=== PATIENT | male | born 1955 | race Caucasian/White ===

== ENCOUNTER 2017-10-12 21:58 | Inpatient (IN) | payer OTHER ==
[2017-10-13] MEDS ORDERED: NACL 0.9% 3 ML SYG IV (03:00)
[2017-10-13] MEDS ORDERED: ONDANSETRON 4 MG INJ IV (03:00)
[2017-10-13] MEDS ORDERED: NITROGLYCERIN (SL) 0.4 MG TAB SL (03:00)
[2017-10-13] MEDS ORDERED: morphine 2 MG INJ IV (03:00)
[2017-10-13] MEDS ORDERED: ALBUTEROL/IPRATROPIUM (NEB) 3 ML AMP HHN (03:00)
[2017-10-13] MEDS ORDERED: ACETAMINOPHEN 325 MG TAB PO (03:00)
[2017-10-13] MEDS ORDERED: HYDROCODONE/APAP (5/325) TAB PO (03:00)
[2017-10-13] MEDS ORDERED: MAGNESIUM HYDROXIDE 30ML CUP PO (03:00)
[2017-10-13 04:14] LABS: ADD MAN DIFF? NO
[2017-10-13 04:18] LABS: WHITE BLOOD COUNT 5.6 10^3/ul (4.8-10.8)
[2017-10-13 04:18] LABS: BASOPHIL # 0.1 10^3/ul (0.0-0.1); BASOPHILS % 0.9 % (0.0-2.0); EOSINOPHILS # 0.1 10^3/ul (0.0-0.5); EOSINOPHILS % 2.2 % (0.0-7.0); HEMATOCRIT 34.3 % (42.0-52.0); HEMOGLOBIN 11.2 g/dl (14.0-18.0); LYMPHOCYTES # 0.7 10^3/ul (0.8-2.9); LYMPHOCYTES % 13.1 % (15.0-51.0); MEAN CORPUSCULAR HEMOGLOBIN 29.9 pg (29.0-33.0); MEAN CORPUSCULAR HGB CONC 32.7 g/dl (32.0-37.0); MEAN CORPUSCULAR VOLUME 91.7 fl (82.0-101.0); MEAN PLATELET VOLUME 10.4 fl (7.4-10.4); MONOCYTE # 0.5 10^3/ul (0.3-0.9); MONOCYTES % 8.4 % (0.0-11.0); NEUTROPHIL # 4.2 10^3/ul (1.6-7.5); NEUTROPHILS % 75.2 % (39.0-77.0); PLATELET COUNT 158 10^3/UL (140-415); RED BLOOD COUNT 3.74 10^6/ul (4.70-6.10); RED CELL DISTRIBUTION WIDTH 14.1 % (11.5-14.5)
[2017-10-13 04:48] LABS: CREATINE KINASE 72 IU/L (23-200)
[2017-10-13 04:51] LABS: ALANINE AMINOTRANSFERASE 17 IU/L (13-69); ALBUMIN 3.1 g/dl (3.3-4.9); ALBUMIN/GLOBULIN RATIO 0.75; ALKALINE PHOSPHATASE 84 IU/L (42-121); ANION GAP 14 (8-16); ASPARTATE AMINO TRANSFERASE 31 IU/L (15-46); BILIRUBIN,INDIRECT 0.6 mg/dl (0-1.1); BILIRUBIN,TOTAL 0.6 mg/dl (0.2-1.3); BLOOD UREA NITROGEN 17 mg/dl (7-20); CALCIUM 8.7 mg/dl (8.4-10.2); CARBON DIOXIDE 25 mmol/L (21-31); CHLORIDE 109 mmol/L (97-110); CHOLESTEROL 96 mg/dl (100-200); CREATININE 0.77 mg/dl (0.61-1.24); HDL CHOLESTEROL 32 mg/dl (30-78); LDL CHOLESTEROL,CALCULATED 52 mg/dl; POTASSIUM 4.1 mmol/L (3.5-5.1); SODIUM 144 mmol/L (135-144); TOTAL PROTEIN 7.2 g/dl (6.1-8.1); TRIGLYCERIDES 58 mg/dl (0-149)
[2017-10-13 04:56] LABS: GLUCOSE 42 mg/dl (70-220)
[2017-10-13 05:02] LABS: TROPONIN-I 0.041 ng/ml (0.00-0.12)
[2017-10-13 05:04] LABS: CK-MB 2.19 ng/ml (0.0-2.4)
[2017-10-13] MEDS ORDERED: DEXTROSE 50% 50 ML SYRINGE (05:05)
[2017-10-13 05:21] LABS: THYROID STIMULATING HORMONE 0.774 MIU/L (0.465-4.680)
[2017-10-13] MEDS: DEXTROSE 50% 50 ML SYRINGE IV ×2 (05:26→16:47)
[2017-10-13] MEDS ORDERED: NATEGLINIDE 120 MG TAB PO (07:00)
[2017-10-13] MEDS ORDERED: LINAGLIPTIN 5 MG TABLET PO (09:00)
[2017-10-13] MEDS ORDERED: [UNRECOGNIZED DRUG - OTHER] PO (09:00)
[2017-10-13 10:00] LABS: CREATINE KINASE 86 IU/L (23-200)
[2017-10-13] MEDS: MELOXICAM 7.5 MG TAB PO (10:01)
[2017-10-13] MEDS: GABAPENTIN 300 MG CAP PO ×3 (10:01→21:54)
[2017-10-13] MEDS: DOCUSATE SODIUM 100 MG CAP PO ×2 (10:01→21:54)
[2017-10-13 10:02] LABS: CHOLESTEROL 104 mg/dl (100-200); HEMOGLOBIN A1C 6.5 % (0-5.9)
[2017-10-13 10:02] LABS: CHOL/HDL RATIO 3.4 RATIO; HDL CHOLESTEROL 30 mg/dl (30-78); LDL CHOLESTEROL,CALCULATED 62 mg/dl; TRIGLYCERIDES 60 mg/dl (0-149)
[2017-10-13] MEDS: ENOXAPARIN 40 MG/0.4 ML SYG SC (10:03)
[2017-10-13] MEDS: LISINOPRIL 10 MG TAB PO (10:03)
[2017-10-13] MEDS: BACLOFEN 10 MG TAB PO ×4 (10:03→22:01)
[2017-10-13 10:15] LABS: CK INDEX 2.8
[2017-10-13 10:17] LABS: CK-MB 2.45 ng/ml (0.0-2.4)
[2017-10-13 15:16] LABS: CREATINE KINASE 70 IU/L (23-200)
[2017-10-13 15:26] LABS: CK INDEX 3.3; TROPONIN-I 0.047 ng/ml (0.00-0.12)
[2017-10-13 15:27] LABS: CK-MB 2.32 ng/ml (0.0-2.4)
[2017-10-13] MEDS ORDERED: GLUCOSE GEL 24 GRAMS PO (16:30)
[2017-10-13] MEDS: FUROSEMIDE 40 MG INJ IV (16:45)
[2017-10-13] MEDS ORDERED: GLUCOSE GEL 15 GRAM TUBE PO ×3 (17:00→18:30)
[2017-10-13] MEDS ORDERED: GLUCOSE GEL 15 GRAM TUBE BUCCAL (18:30)
[2017-10-13] MEDS ORDERED: DEXTROSE 50% 50 ML SYRINGE IV ×2 (18:30)
[2017-10-13] MEDS ORDERED: GLUCAGON 1 MG INJ IM (18:30)
[2017-10-13 18:34] LABS: GLUCOSE 114 mg/dl (70-220)
[2017-10-13] MEDS: SENNA TAB PO (21:54)
[2017-10-13] MEDS: INSULIN ASPART [NOVOLOG] 3 ML PEN SC (22:00)
[2017-10-14] MEDS: FUROSEMIDE 40 MG INJ IV ×2 (05:40→18:20)
[2017-10-14 07:55] LABS: ADD MAN DIFF? NO
[2017-10-14] MEDS: INSULIN ASPART [NOVOLOG] 3 ML PEN SC ×4 (08:00→20:57)
[2017-10-14 08:05] LABS: WHITE BLOOD COUNT 7.4 10^3/ul (4.8-10.8)
[2017-10-14 08:05] LABS: BASOPHIL # 0.1 10^3/ul (0.0-0.1); BASOPHILS % 1.1 % (0.0-2.0); EOSINOPHILS # 0.2 10^3/ul (0.0-0.5); EOSINOPHILS % 3.2 % (0.0-7.0); HEMATOCRIT 37.4 % (42.0-52.0); LYMPHOCYTES # 0.8 10^3/ul (0.8-2.9); LYMPHOCYTES % 10.5 % (15.0-51.0); MEAN CORPUSCULAR HEMOGLOBIN 29.5 pg (29.0-33.0); MEAN CORPUSCULAR HGB CONC 32.1 g/dl (32.0-37.0); MEAN CORPUSCULAR VOLUME 91.9 fl (82.0-101.0); MEAN PLATELET VOLUME 10.5 fl (7.4-10.4); MONOCYTE # 0.5 10^3/ul (0.3-0.9); NEUTROPHIL # 5.8 10^3/ul (1.6-7.5); NEUTROPHILS % 77.9 % (39.0-77.0); PLATELET COUNT 183 10^3/UL (140-415); RED BLOOD COUNT 4.07 10^6/ul (4.70-6.10); RED CELL DISTRIBUTION WIDTH 14.1 % (11.5-14.5)
[2017-10-14 08:24] LABS: ANION GAP 14 (8-16); BLOOD UREA NITROGEN 23 mg/dl (7-20); CALCIUM 8.8 mg/dl (8.4-10.2); CARBON DIOXIDE 30 mmol/L (21-31); CHLORIDE 105 mmol/L (97-110); CREATININE 0.95 mg/dl (0.61-1.24); GLUCOSE 133 mg/dl (70-220); MAGNESIUM 1.7 mg/dl (1.7-2.5); PHOSPHORUS 3.7 mg/dl (2.5-4.9); POTASSIUM 4.1 mmol/L (3.5-5.1); SODIUM 145 mmol/L (135-144)
[2017-10-14] MEDS: INFLUENZA VIRUS VACCINE 0.5 ML (DISPENSING) IM* (08:25)
[2017-10-14] MEDS: MELOXICAM 7.5 MG TAB PO (09:53)
[2017-10-14] MEDS: DOCUSATE SODIUM 100 MG CAP PO ×2 (09:53→20:48)
[2017-10-14] MEDS: BACLOFEN 10 MG TAB PO ×4 (09:53→20:47)
[2017-10-14] MEDS: LISINOPRIL 10 MG TAB PO (09:53)
[2017-10-14] MEDS: GABAPENTIN 300 MG CAP PO ×3 (09:53→20:48)
[2017-10-14] MEDS: ENOXAPARIN 40 MG/0.4 ML SYG SC (09:57)
[2017-10-14] MEDS: MAGNESIUM SULFATE 2 GM/50 ML 50 ML IVPB (12:15)
[2017-10-14] MEDS: metFORMIN 500 MG TAB PO ×2 (13:06→18:19)
[2017-10-14] MEDS: SENNA TAB PO (20:47)
[2017-10-15] MEDS: FUROSEMIDE 40 MG INJ IV (06:04)
[2017-10-15] MEDS: INSULIN ASPART [NOVOLOG] 3 ML PEN SC ×5 (08:00→21:00)
[2017-10-15] MEDS: metFORMIN 500 MG TAB PO ×3 (08:00→17:32)
[2017-10-15 08:50] LABS: ANION GAP 14 (8-16); BLOOD UREA NITROGEN 26 mg/dl (7-20); CALCIUM 8.7 mg/dl (8.4-10.2); CARBON DIOXIDE 35 mmol/L (21-31); CHLORIDE 102 mmol/L (97-110); CREATININE 0.95 mg/dl (0.61-1.24); GLUCOSE 125 mg/dl (70-220); POTASSIUM 3.7 mmol/L (3.5-5.1); SODIUM 147 mmol/L (135-144)
[2017-10-15] MEDS: REGADENOSON 0.4 MG/5 ML SYG (09:30)
[2017-10-15] MEDS: ENOXAPARIN 40 MG/0.4 ML SYG SC (10:32)
[2017-10-15] MEDS: BACLOFEN 10 MG TAB PO ×4 (10:48→21:16)
[2017-10-15] MEDS: MELOXICAM 7.5 MG TAB PO (10:50)
[2017-10-15] MEDS: GABAPENTIN 300 MG CAP PO ×3 (10:51→21:16)
[2017-10-15] MEDS: DOCUSATE SODIUM 100 MG CAP PO ×2 (10:51→21:16)
[2017-10-15] MEDS: LISINOPRIL 10 MG TAB PO (10:56)
[2017-10-15] MEDS: SENNA TAB PO (21:16)
[2017-10-16] MEDS: FUROSEMIDE 40 MG TAB PO (06:16)
[2017-10-16 06:56] LABS: ANION GAP 13 (8-16); BLOOD UREA NITROGEN 28 mg/dl (7-20); CALCIUM 8.6 mg/dl (8.4-10.2); CARBON DIOXIDE 31 mmol/L (21-31); CHLORIDE 106 mmol/L (97-110); CREATININE 0.87 mg/dl (0.61-1.24); GLUCOSE 122 mg/dl (70-220); POTASSIUM 3.8 mmol/L (3.5-5.1); SODIUM 146 mmol/L (135-144)
[2017-10-16] MEDS: metFORMIN 500 MG TAB PO ×2 (07:57→17:55)
[2017-10-16] MEDS: INSULIN ASPART [NOVOLOG] 3 ML PEN SC ×4 (07:57→20:40)
[2017-10-16] MEDS: MELOXICAM 7.5 MG TAB PO (09:25)
[2017-10-16] MEDS: LISINOPRIL 10 MG TAB PO (09:25)
[2017-10-16] MEDS: BACLOFEN 10 MG TAB PO ×4 (09:25→20:35)
[2017-10-16] MEDS: DOCUSATE SODIUM 100 MG CAP PO ×2 (09:25→20:35)
[2017-10-16] MEDS: GABAPENTIN 300 MG CAP PO ×3 (09:25→20:35)
[2017-10-16] MEDS: ENOXAPARIN 40 MG/0.4 ML SYG SC (09:26)
[2017-10-16] MEDS: SENNA TAB PO (20:35)
[2017-10-17] MEDS: FUROSEMIDE 40 MG TAB PO (05:40)
[2017-10-17] MEDS: INSULIN ASPART [NOVOLOG] 3 ML PEN SC ×3 (08:15→17:28)
[2017-10-17] MEDS: metFORMIN 500 MG TAB PO ×2 (08:20→17:31)
[2017-10-17] MEDS: BACLOFEN 10 MG TAB PO ×3 (08:20→17:21)
[2017-10-17] MEDS: DOCUSATE SODIUM 100 MG CAP PO (08:21)
[2017-10-17] MEDS: GABAPENTIN 300 MG CAP PO ×2 (08:21→12:09)
[2017-10-17] MEDS: LISINOPRIL 10 MG TAB PO (08:21)
[2017-10-17] MEDS: MELOXICAM 7.5 MG TAB PO (08:21)
[2017-10-17] MEDS: ENOXAPARIN 40 MG/0.4 ML SYG SC (08:26)
== END 2017-10-17 18:30 | disposition home or self-care (01) | DRG 293 ==
LOC: MS2 10-16 16:51 → E/R 21:58 → MS4 10-13 05:02
DX: I50.43 Acute on chronic combined systolic (congestive) and diastolic (congestive) heart failure (principal); E11.649 Type 2 diabetes mellitus with hypoglycemia without coma; I35.0 Nonrheumatic aortic (valve) stenosis; I11.0 Hypertensive heart disease with heart failure; I25.10 Atherosclerotic heart disease of native coronary artery without angina pectoris; F17.200 Nicotine dependence, unspecified, uncomplicated; I34.0 Nonrheumatic mitral (valve) insufficiency; Z89.422 Acquired absence of other left toe(s)
CPT/HCPCS: 36415; 71046; 78452; 80048; 80053; 80061; 82550; 82553; 82947; 82962; 83036; 83735; 84100; 84443; 84484; 85025; 93005; 93017; 93306; 96372; 96374; 99285-25

== ENCOUNTER 2017-11-04 07:29 | Inpatient (IN) | payer OTHER ==
[2017-11-04] MEDS: morphine 4 MG/ML VIAL IV (07:49)
[2017-11-04] MEDS: ONDANSETRON 4 MG INJ IV (07:49)
[2017-11-04 08:29] LABS: ADD MAN DIFF? NO
[2017-11-04 08:31] LABS: BASOPHILS % 0.5 % (0.0-2.0); EOSINOPHILS # 0.3 10^3/ul (0.0-0.5); EOSINOPHILS % 3.4 % (0.0-7.0); HEMATOCRIT 38.3 % (42.0-52.0); HEMOGLOBIN 12.5 g/dl (14.0-18.0); LYMPHOCYTES # 1.4 10^3/ul (0.8-2.9); LYMPHOCYTES % 18.4 % (15.0-51.0); MEAN CORPUSCULAR HEMOGLOBIN 29.6 pg (29.0-33.0); MEAN CORPUSCULAR HGB CONC 32.6 g/dl (32.0-37.0); MEAN CORPUSCULAR VOLUME 90.5 fl (82.0-101.0); MEAN PLATELET VOLUME 10.9 fl (7.4-10.4); MONOCYTE # 0.5 10^3/ul (0.3-0.9); MONOCYTES % 6.8 % (0.0-11.0); NEUTROPHIL # 5.2 10^3/ul (1.6-7.5); NEUTROPHILS % 70.6 % (39.0-77.0); PLATELET COUNT 142 10^3/UL (140-415); RED BLOOD COUNT 4.23 10^6/ul (4.70-6.10); RED CELL DISTRIBUTION WIDTH 14.6 % (11.5-14.5)
[2017-11-04 08:31] LABS: WHITE BLOOD COUNT 7.3 10^3/ul (4.8-10.8)
[2017-11-04 08:52] LABS: INR 1.12; PARTIAL THROMBOPLASTIN TIME 31.1 Sec (25.0-35.0); PROTIME 14.6 Sec (11.9-14.9); PT RATIO 1.1
[2017-11-04 08:53] LABS: ANION GAP 14 (8-16); BLOOD UREA NITROGEN 27 mg/dl (7-20); CALCIUM 9.2 mg/dl (8.4-10.2); CARBON DIOXIDE 24 mmol/L (21-31); CHLORIDE 109 mmol/L (97-110); CREATININE 0.84 mg/dl (0.61-1.24); GLUCOSE 96 mg/dl (70-220); POTASSIUM 4.3 mmol/L (3.5-5.1); SODIUM 143 mmol/L (135-144)
[2017-11-04] MEDS ORDERED: MAGNESIUM HYDROXIDE 30ML CUP PO (09:00)
[2017-11-04] MEDS ORDERED: NITROGLYCERIN (SL) 0.4 MG TAB SL (09:00)
[2017-11-04] MEDS ORDERED: NACL 0.9% 3 ML SYG IV (09:00)
[2017-11-04] MEDS ORDERED: ACETAMINOPHEN 325 MG TAB PO ×2 (09:00)
[2017-11-04] MEDS ORDERED: ONDANSETRON 4 MG INJ IV ×2 (09:00)
[2017-11-04 09:05] LABS: TROPONIN-I 0.038 ng/ml (0.00-0.12)
[2017-11-04] MEDS ORDERED: morphine 2 MG INJ IV (10:00)
[2017-11-04] MEDS: BACLOFEN 10 MG TAB PO ×4 (10:18→20:24)
[2017-11-04] MEDS: DOCUSATE SODIUM 100 MG CAP PO ×2 (10:18→20:24)
[2017-11-04] MEDS: MELOXICAM 7.5 MG TAB PO (10:18)
[2017-11-04] MEDS: GABAPENTIN 300 MG CAP PO ×3 (10:18→20:24)
[2017-11-04] MEDS: LISINOPRIL 10 MG TAB PO (10:21)
[2017-11-04] MEDS: HYDROmorphONE 0.5 MG/0.5 ML SYG IV (10:27)
[2017-11-04 14:45] LABS: CREATINE KINASE 92 IU/L (23-200)
[2017-11-04 14:58] LABS: CK INDEX 3.1; TROPONIN-I 0.025 ng/ml (0.00-0.12)
[2017-11-04 15:01] LABS: CK-MB 2.86 ng/ml (0.0-2.4)
[2017-11-04] MEDS ORDERED: GLUCOSE GEL 15 GRAM TUBE PO ×2 (19:30)
[2017-11-04] MEDS ORDERED: GLUCAGON 1 MG INJ IM (19:30)
[2017-11-04] MEDS ORDERED: GLUCOSE GEL 15 GRAM TUBE BUCCAL (19:30)
[2017-11-04] MEDS ORDERED: DEXTROSE 50% 50 ML SYRINGE IV ×2 (19:30)
[2017-11-04 19:56] LABS: CREATINE KINASE 94 IU/L (23-200)
[2017-11-04 20:08] LABS: CK INDEX 3.1; TROPONIN-I 0.027 ng/ml (0.00-0.12)
[2017-11-04 20:09] LABS: CK-MB 2.95 ng/ml (0.0-2.4)
[2017-11-04] MEDS: SENNA TAB PO (20:24)
[2017-11-04] MEDS: INSULIN ASPART [NOVOLOG] 3 ML PEN SC (20:27)
[2017-11-05] MEDS: HYDROCODONE/APAP (5/325) TAB PO ×2 (00:45→16:24)
[2017-11-05] MEDS: morphine LIQ (10 MG/5 ML) CUP PO (03:24)
[2017-11-05] MEDS: FUROSEMIDE 40 MG TAB PO (05:25)
[2017-11-05 06:27] LABS: ADD MAN DIFF? NO
[2017-11-05 06:35] LABS: WHITE BLOOD COUNT 11.3 10^3/ul (4.8-10.8)
[2017-11-05 06:35] LABS: BASOPHIL # 0.1 10^3/ul (0.0-0.1); BASOPHILS % 0.6 % (0.0-2.0); EOSINOPHILS # 0.2 10^3/ul (0.0-0.5); EOSINOPHILS % 1.9 % (0.0-7.0); HEMATOCRIT 37.3 % (42.0-52.0); HEMOGLOBIN 12.2 g/dl (14.0-18.0); LYMPHOCYTES # 0.7 10^3/ul (0.8-2.9); LYMPHOCYTES % 6.2 % (15.0-51.0); MEAN CORPUSCULAR HEMOGLOBIN 29.5 pg (29.0-33.0); MEAN CORPUSCULAR HGB CONC 32.7 g/dl (32.0-37.0); MEAN CORPUSCULAR VOLUME 90.3 fl (82.0-101.0); MEAN PLATELET VOLUME 11.2 fl (7.4-10.4); MONOCYTE # 0.7 10^3/ul (0.3-0.9); NEUTROPHIL # 9.6 10^3/ul (1.6-7.5); NEUTROPHILS % 84.8 % (39.0-77.0); PLATELET COUNT 131 10^3/UL (140-415); RED BLOOD COUNT 4.13 10^6/ul (4.70-6.10); RED CELL DISTRIBUTION WIDTH 14.8 % (11.5-14.5)
[2017-11-05 07:05] LABS: ALBUMIN 3.5 g/dl (3.3-4.9); ANION GAP 15 (8-16); BLOOD UREA NITROGEN 26 mg/dl (7-20); CARBON DIOXIDE 23 mmol/L (21-31); CHLORIDE 111 mmol/L (97-110); CREATININE 0.79 mg/dl (0.61-1.24); GLUCOSE 142 mg/dl (70-220); MAGNESIUM 1.9 mg/dl (1.7-2.5); PHOSPHORUS 4.3 mg/dl (2.5-4.9); POTASSIUM 4.4 mmol/L (3.5-5.1); SODIUM 145 mmol/L (135-144)
[2017-11-05] MEDS: GABAPENTIN 300 MG CAP PO ×3 (08:00→20:03)
[2017-11-05] MEDS: BACLOFEN 10 MG TAB PO ×4 (08:00→20:03)
[2017-11-05] MEDS: DOCUSATE SODIUM 100 MG CAP PO ×2 (08:00→20:03)
[2017-11-05] MEDS: LISINOPRIL 10 MG TAB PO (08:01)
[2017-11-05] MEDS: MELOXICAM 7.5 MG TAB PO (08:01)
[2017-11-05] MEDS: INSULIN ASPART [NOVOLOG] 3 ML PEN SC ×4 (08:12→20:10)
[2017-11-05] MEDS: SENNA TAB PO (20:03)
[2017-11-06] MEDS: HYDROCODONE/APAP (5/325) TAB PO (00:33)
[2017-11-06 00:41] LABS: ANION GAP 11 (8-16); BLOOD UREA NITROGEN 41 mg/dl (7-20); CALCIUM 9.1 mg/dl (8.4-10.2); CARBON DIOXIDE 28 mmol/L (21-31); CHLORIDE 107 mmol/L (97-110); CREATININE 1.17 mg/dl (0.61-1.24); GLUCOSE 149 mg/dl (70-220); SODIUM 142 mmol/L (135-144)
[2017-11-06] MEDS: FUROSEMIDE 40 MG TAB PO (05:08)
[2017-11-06 06:08] LABS: ADD MAN DIFF? NO
[2017-11-06 06:13] LABS: BASOPHIL # 0.1 10^3/ul (0.0-0.1); BASOPHILS % 0.6 % (0.0-2.0); EOSINOPHILS # 0.4 10^3/ul (0.0-0.5); EOSINOPHILS % 3.9 % (0.0-7.0); HEMATOCRIT 35.5 % (42.0-52.0); HEMOGLOBIN 11.6 g/dl (14.0-18.0); LYMPHOCYTES # 0.9 10^3/ul (0.8-2.9); LYMPHOCYTES % 9.3 % (15.0-51.0); MEAN CORPUSCULAR HEMOGLOBIN 29.4 pg (29.0-33.0); MEAN CORPUSCULAR HGB CONC 32.7 g/dl (32.0-37.0); MEAN CORPUSCULAR VOLUME 90.1 fl (82.0-101.0); MEAN PLATELET VOLUME 10.9 fl (7.4-10.4); MONOCYTE # 0.8 10^3/ul (0.3-0.9); MONOCYTES % 8.1 % (0.0-11.0); NEUTROPHIL # 7.8 10^3/ul (1.6-7.5); NEUTROPHILS % 77.8 % (39.0-77.0); PLATELET COUNT 125 10^3/UL (140-415); RED BLOOD COUNT 3.94 10^6/ul (4.70-6.10); RED CELL DISTRIBUTION WIDTH 14.8 % (11.5-14.5)
[2017-11-06 06:13] LABS: WHITE BLOOD COUNT 10.1 10^3/ul (4.8-10.8)
[2017-11-06 06:35] LABS: ALBUMIN 3.8 g/dl (3.3-4.9); ANION GAP 14 (8-16); BLOOD UREA NITROGEN 35 mg/dl (7-20); CALCIUM 9.2 mg/dl (8.4-10.2); CARBON DIOXIDE 26 mmol/L (21-31); CHLORIDE 109 mmol/L (97-110); CREATININE 0.96 mg/dl (0.61-1.24); GLUCOSE 179 mg/dl (70-220); MAGNESIUM 1.9 mg/dl (1.7-2.5); PHOSPHORUS 3.5 mg/dl (2.5-4.9); POTASSIUM 4.7 mmol/L (3.5-5.1); SODIUM 144 mmol/L (135-144)
[2017-11-06] MEDS: DOCUSATE SODIUM 100 MG CAP PO ×2 (09:04→21:26)
[2017-11-06] MEDS: GABAPENTIN 300 MG CAP PO ×3 (09:05→21:26)
[2017-11-06] MEDS: MELOXICAM 7.5 MG TAB PO (09:05)
[2017-11-06] MEDS: BACLOFEN 10 MG TAB PO ×4 (09:05→21:26)
[2017-11-06] MEDS: LISINOPRIL 10 MG TAB PO (09:06)
[2017-11-06] MEDS: INSULIN ASPART [NOVOLOG] 3 ML PEN SC ×4 (09:18→21:32)
[2017-11-06] MEDS: SENNA TAB PO (21:26)
[2017-11-07] MEDS: FUROSEMIDE 40 MG TAB PO (05:49)
[2017-11-07 06:13] LABS: ADD MAN DIFF? NO
[2017-11-07 06:25] LABS: BASOPHIL # 0.1 10^3/ul (0.0-0.1); BASOPHILS % 0.8 % (0.0-2.0); EOSINOPHILS # 0.4 10^3/ul (0.0-0.5); EOSINOPHILS % 4.4 % (0.0-7.0); HEMATOCRIT 34.9 % (42.0-52.0); HEMOGLOBIN 11.6 g/dl (14.0-18.0); LYMPHOCYTES # 1.2 10^3/ul (0.8-2.9); LYMPHOCYTES % 15.1 % (15.0-51.0); MEAN CORPUSCULAR HEMOGLOBIN 29.5 pg (29.0-33.0); MEAN CORPUSCULAR HGB CONC 33.2 g/dl (32.0-37.0); MEAN CORPUSCULAR VOLUME 88.8 fl (82.0-101.0); MEAN PLATELET VOLUME 11.1 fl (7.4-10.4); MONOCYTE # 0.8 10^3/ul (0.3-0.9); MONOCYTES % 9.9 % (0.0-11.0); NEUTROPHIL # 5.5 10^3/ul (1.6-7.5); NEUTROPHILS % 69.5 % (39.0-77.0); PLATELET COUNT 124 10^3/UL (140-415); RED BLOOD COUNT 3.93 10^6/ul (4.70-6.10); RED CELL DISTRIBUTION WIDTH 15.1 % (11.5-14.5)
[2017-11-07 06:51] LABS: ALBUMIN 3.7 g/dl (3.3-4.9); ANION GAP 15 (8-16); BLOOD UREA NITROGEN 36 mg/dl (7-20); CALCIUM 9.1 mg/dl (8.4-10.2); CARBON DIOXIDE 24 mmol/L (21-31); CHLORIDE 112 mmol/L (97-110); CREATININE 0.82 mg/dl (0.61-1.24); GLUCOSE 150 mg/dl (70-220); PHOSPHORUS 3.3 mg/dl (2.5-4.9); POTASSIUM 4.3 mmol/L (3.5-5.1); SODIUM 147 mmol/L (135-144)
[2017-11-07] MEDS: BACLOFEN 10 MG TAB PO ×4 (08:05→20:35)
[2017-11-07] MEDS: MELOXICAM 7.5 MG TAB PO (08:05)
[2017-11-07] MEDS: DOCUSATE SODIUM 100 MG CAP PO ×2 (08:06→20:35)
[2017-11-07] MEDS: GABAPENTIN 300 MG CAP PO ×3 (08:06→20:35)
[2017-11-07] MEDS: LISINOPRIL 10 MG TAB PO (08:06)
[2017-11-07] MEDS: INSULIN ASPART [NOVOLOG] 3 ML PEN SC ×4 (08:32→20:44)
[2017-11-07] MEDS: HYDROCODONE/APAP (5/325) TAB PO ×2 (11:14→18:15)
[2017-11-07] MEDS: SENNA TAB PO (20:35)
[2017-11-08] MEDS: FUROSEMIDE 40 MG TAB PO (06:03)
[2017-11-08] MEDS: INSULIN ASPART [NOVOLOG] 3 ML PEN SC ×2 (08:15→12:23)
[2017-11-08] MEDS: DOCUSATE SODIUM 100 MG CAP PO (09:16)
[2017-11-08] MEDS: BACLOFEN 10 MG TAB PO ×2 (09:17→12:54)
[2017-11-08] MEDS: MELOXICAM 15 MG TAB PO (09:17)
[2017-11-08] MEDS: GABAPENTIN 300 MG CAP PO ×2 (09:17→12:54)
[2017-11-08] MEDS: LISINOPRIL 10 MG TAB PO (09:17)
== END 2017-11-08 14:14 | disposition home or self-care (01) | DRG 563 ==
LOC: E/R 07:29 → TEL 08:35
DX: S42.201A Unspecified fracture of upper end of right humerus, initial encounter for closed fracture (principal); I50.30 Unspecified diastolic (congestive) heart failure; I25.10 Atherosclerotic heart disease of native coronary artery without angina pectoris; E11.8 Type 2 diabetes mellitus with unspecified complications; I11.0 Hypertensive heart disease with heart failure; D64.9 Anemia, unspecified
CPT/HCPCS: 36415; 70450; 71045; 73030-RT; 80048; 80069; 82550; 82553; 82962; 83735; 84443; 84484; 85025; 85610; 85730; 93005; 96374; 96375; 99285-25

== ENCOUNTER 2017-11-15 15:27 | Outpatient (CLI) | payer OTHER | END 2017-11-15 16:20 | disposition home or self-care (01) | LOC: DCC 15:27 | DX: S42.301D Unspecified fracture of shaft of humerus, right arm, subsequent encounter for fracture with routine healing (principal); W01.0XXD Fall on same level from slipping, tripping and stumbling without subsequent striking against object, subsequent encounter; I25.10 Atherosclerotic heart disease of native coronary artery without angina pectoris; I35.0 Nonrheumatic aortic (valve) stenosis; I50.9 Heart failure, unspecified; E11.8 Type 2 diabetes mellitus with unspecified complications; I10 Essential (primary) hypertension | CPT/HCPCS: G0463 ==

== ENCOUNTER 2017-11-25 02:01 | Inpatient (IN) | payer OTHER ==
[2017-11-25] MEDS ORDERED: VANCOMYCIN IV PER PHARMACY XX (04:00)
[2017-11-25] MEDS ORDERED: PENDING SANTYL ORDER FOR WOUND CARE XX (04:00)
[2017-11-25] MEDS: VANCOMYCIN 750 MG in DEXTROSE 5% 150 ML IVPB (06:42)
[2017-11-25 07:03] LABS: HEMOGLOBIN A1C 6.2 % (0-5.9)
[2017-11-25] MEDS: INSULIN ASPART [NOVOLOG] 3 ML PEN SC ×4 (07:49→20:21)
[2017-11-25] MEDS ORDERED: MAGNESIUM HYDROXIDE 30ML CUP PO (08:30)
[2017-11-25] MEDS: ATORVASTATIN 40 MG TAB PO (10:00)
[2017-11-25] MEDS: CHOLECALCIFEROL 1,000 UNIT TAB PO (10:00)
[2017-11-25] MEDS: ASPIRIN 81 MG TAB PO (10:00)
[2017-11-25] MEDS: BACLOFEN 10 MG TAB PO ×4 (10:00→20:19)
[2017-11-25] MEDS: DOCUSATE SODIUM 100 MG CAP PO ×2 (10:00→20:19)
[2017-11-25] MEDS: LISINOPRIL 10 MG TAB PO (10:01)
[2017-11-25] MEDS: GABAPENTIN 300 MG CAP PO ×3 (10:01→20:18)
[2017-11-25] MEDS: DULOXETINE 30 MG CAP DR PO (10:01)
[2017-11-25] MEDS: MELOXICAM 15 MG TAB PO (10:03)
[2017-11-25] MEDS: POTASSIUM CHLORIDE (SR) 8 MEQ CAP PO (10:03)
[2017-11-25 10:21] LABS: ERYTHROCYTE SEDIMENTATION RATE 85 mm/Hr (0-20)
[2017-11-25] MEDS: PIPER-TAZO 3.375 GM IV (PMX) 100 ML IVPB ×2 (12:02→17:10)
[2017-11-25] MEDS: NATEGLINIDE 120 MG TAB PO ×2 (12:02→17:10)
[2017-11-25] MEDS ORDERED: HYDROCODONE/APAP (5/325) TAB PO (15:30)
[2017-11-25] MEDS: morphine 2 MG INJ IV (15:41)
[2017-11-25] MEDS: VANCOMYCIN 1.5 GM in SOD CHLORIDE 0.9% 250 ML IVPB (17:53)
[2017-11-25] MEDS: SENNA TAB PO (20:19)
[2017-11-26] MEDS: PIPER-TAZO 3.375 GM IV (PMX) 100 ML IVPB ×4 (00:12→17:53)
[2017-11-26] MEDS: ACCU-CHEK XX (00:12)
[2017-11-26] MEDS: VANCOMYCIN 1.5 GM in SOD CHLORIDE 0.9% 250 ML IVPB ×2 (05:14→18:53)
[2017-11-26] MEDS: FUROSEMIDE 40 MG TAB PO (05:15)
[2017-11-26 05:40] LABS: ADD MAN DIFF? NO
[2017-11-26 06:04] LABS: BASOPHILS % 0.6 % (0.0-2.0); EOSINOPHILS # 0.4 10^3/ul (0.0-0.5); EOSINOPHILS % 7.1 % (0.0-7.0); HEMATOCRIT 35.3 % (42.0-52.0); HEMOGLOBIN 11.4 g/dl (14.0-18.0); LYMPHOCYTES # 1.2 10^3/ul (0.8-2.9); LYMPHOCYTES % 19.4 % (15.0-51.0); MEAN CORPUSCULAR HEMOGLOBIN 29.3 pg (29.0-33.0); MEAN CORPUSCULAR HGB CONC 32.3 g/dl (32.0-37.0); MEAN CORPUSCULAR VOLUME 90.7 fl (82.0-101.0); MEAN PLATELET VOLUME 10.4 fl (7.4-10.4); MONOCYTE # 0.7 10^3/ul (0.3-0.9); MONOCYTES % 10.9 % (0.0-11.0); NEUTROPHIL # 3.9 10^3/ul (1.6-7.5); NEUTROPHILS % 61.7 % (39.0-77.0); PLATELET COUNT 174 10^3/UL (140-415); RED BLOOD COUNT 3.89 10^6/ul (4.70-6.10); RED CELL DISTRIBUTION WIDTH 14.7 % (11.5-14.5)
[2017-11-26 06:04] LABS: WHITE BLOOD COUNT 6.2 10^3/ul (4.8-10.8)
[2017-11-26 06:31] LABS: ANION GAP 11 (8-16); BLOOD UREA NITROGEN 21 mg/dl (7-20); CALCIUM 9.4 mg/dl (8.4-10.2); CARBON DIOXIDE 29 mmol/L (21-31); CHLORIDE 111 mmol/L (97-110); GLUCOSE 113 mg/dl (70-220); POTASSIUM 5.1 mmol/L (3.5-5.1); SODIUM 146 mmol/L (135-144)
[2017-11-26] MEDS: INSULIN ASPART [NOVOLOG] 3 ML PEN SC ×4 (08:00→20:19)
[2017-11-26] MEDS: GABAPENTIN 300 MG CAP PO ×3 (08:30→20:17)
[2017-11-26] MEDS: ASPIRIN 81 MG TAB PO (08:30)
[2017-11-26] MEDS: DOCUSATE SODIUM 100 MG CAP PO ×2 (08:30→20:17)
[2017-11-26] MEDS: BACLOFEN 10 MG TAB PO ×4 (08:30→20:17)
[2017-11-26] MEDS: NATEGLINIDE 120 MG TAB PO ×3 (08:30→17:52)
[2017-11-26] MEDS: DULOXETINE 30 MG CAP DR PO (08:30)
[2017-11-26] MEDS: MELOXICAM 15 MG TAB PO (08:35)
[2017-11-26] MEDS: POTASSIUM CHLORIDE (SR) 8 MEQ CAP PO (08:35)
[2017-11-26] MEDS: ATORVASTATIN 40 MG TAB PO (08:36)
[2017-11-26] MEDS: LISINOPRIL 10 MG TAB PO (08:36)
[2017-11-26] MEDS: CHOLECALCIFEROL 1,000 UNIT TAB PO (09:26)
[2017-11-26] MEDS: morphine 2 MG INJ IV (09:26)
[2017-11-26] MEDS: HYDROCODONE/APAP (5/325) TAB PO (12:25)
[2017-11-26 18:42] LABS: VANCOMYCIN,TROUGH 16.5 ug/ml (10.0-20.0)
[2017-11-26] MEDS: SENNA TAB PO (20:17)
[2017-11-27] MEDS: PIPER-TAZO 3.375 GM IV (PMX) 100 ML IVPB ×4 (00:06→17:29)
[2017-11-27] MEDS: ACCU-CHEK XX (02:05)
[2017-11-27] MEDS: FUROSEMIDE 40 MG TAB PO (05:44)
[2017-11-27 06:24] LABS: ADD MAN DIFF? NO
[2017-11-27 06:36] LABS: WHITE BLOOD COUNT 6.4 10^3/ul (4.8-10.8)
[2017-11-27 06:36] LABS: BASOPHIL # 0.1 10^3/ul (0.0-0.1); BASOPHILS % 0.8 % (0.0-2.0); EOSINOPHILS # 0.4 10^3/ul (0.0-0.5); EOSINOPHILS % 6.3 % (0.0-7.0); HEMATOCRIT 35.8 % (42.0-52.0); HEMOGLOBIN 11.8 g/dl (14.0-18.0); LYMPHOCYTES # 1.1 10^3/ul (0.8-2.9); LYMPHOCYTES % 17.4 % (15.0-51.0); MEAN CORPUSCULAR HEMOGLOBIN 29.1 pg (29.0-33.0); MEAN CORPUSCULAR VOLUME 88.4 fl (82.0-101.0); MEAN PLATELET VOLUME 10.3 fl (7.4-10.4); MONOCYTE # 0.6 10^3/ul (0.3-0.9); MONOCYTES % 9.2 % (0.0-11.0); NEUTROPHIL # 4.2 10^3/ul (1.6-7.5); PLATELET COUNT 186 10^3/UL (140-415); RED BLOOD COUNT 4.05 10^6/ul (4.70-6.10); RED CELL DISTRIBUTION WIDTH 14.6 % (11.5-14.5)
[2017-11-27 06:55] LABS: ALANINE AMINOTRANSFERASE 26 IU/L (13-69); ALBUMIN 3.3 g/dl (3.3-4.9); ALKALINE PHOSPHATASE 112 IU/L (42-121); ANION GAP 12 (8-16); ASPARTATE AMINO TRANSFERASE 23 IU/L (15-46); BILIRUBIN,INDIRECT 0.2 mg/dl (0-1.1); BILIRUBIN,TOTAL 0.2 mg/dl (0.2-1.3); BLOOD UREA NITROGEN 26 mg/dl (7-20); CALCIUM 9.3 mg/dl (8.4-10.2); CARBON DIOXIDE 26 mmol/L (21-31); CHLORIDE 112 mmol/L (97-110); CREATININE 0.98 mg/dl (0.61-1.24); GLUCOSE 119 mg/dl (70-220); POTASSIUM 4.5 mmol/L (3.5-5.1); SODIUM 145 mmol/L (135-144); TOTAL PROTEIN 7.4 g/dl (6.1-8.1)
[2017-11-27 07:06] LABS: INR 1.22; PROTIME 15.6 Sec (11.9-14.9); PT RATIO 1.2
[2017-11-27 07:07] LABS: PARTIAL THROMBOPLASTIN TIME 32.9 Sec (25.0-35.0)
[2017-11-27] MEDS: INSULIN ASPART [NOVOLOG] 3 ML PEN SC ×4 (08:00→21:00)
[2017-11-27] MEDS: VANCOMYCIN 1.25 GM in SOD CHLORIDE 0.9% 250 ML IVPB ×2 (08:19→20:02)
[2017-11-27] MEDS: NATEGLINIDE 120 MG TAB PO ×3 (08:19→17:29)
[2017-11-27] MEDS: ATORVASTATIN 40 MG TAB PO (08:39)
[2017-11-27] MEDS: MELOXICAM 15 MG TAB PO (08:39)
[2017-11-27] MEDS: BACLOFEN 10 MG TAB PO ×4 (08:40→21:39)
[2017-11-27] MEDS: POTASSIUM CHLORIDE (SR) 8 MEQ CAP PO (08:40)
[2017-11-27] MEDS: DULOXETINE 30 MG CAP DR PO (08:40)
[2017-11-27] MEDS: CHOLECALCIFEROL 1,000 UNIT TAB PO (08:40)
[2017-11-27] MEDS: ASPIRIN 81 MG TAB PO (08:40)
[2017-11-27] MEDS: DOCUSATE SODIUM 100 MG CAP PO ×2 (08:40→21:39)
[2017-11-27] MEDS: GABAPENTIN 300 MG CAP PO ×3 (08:40→21:39)
[2017-11-27] MEDS: LISINOPRIL 10 MG TAB PO (08:41)
[2017-11-27] MEDS: HYDROCODONE/APAP (5/325) TAB PO (15:42)
[2017-11-27] MEDS: SENNA TAB PO (21:39)
[2017-11-28] MEDS: PIPER-TAZO 3.375 GM IV (PMX) 100 ML IVPB ×4 (00:20→17:41)
[2017-11-28] MEDS: ACCU-CHEK XX (02:00)
[2017-11-28] MEDS: HYDROCODONE/APAP (5/325) TAB PO ×2 (03:04→17:42)
[2017-11-28] MEDS: FUROSEMIDE 40 MG TAB PO (05:36)
[2017-11-28 06:03] LABS: ADD MAN DIFF? NO
[2017-11-28 06:11] LABS: WHITE BLOOD COUNT 6.3 10^3/ul (4.8-10.8)
[2017-11-28 06:11] LABS: BASOPHIL # 0.1 10^3/ul (0.0-0.1); BASOPHILS % 0.8 % (0.0-2.0); EOSINOPHILS # 0.4 10^3/ul (0.0-0.5); EOSINOPHILS % 5.7 % (0.0-7.0); HEMATOCRIT 35.9 % (42.0-52.0); HEMOGLOBIN 11.8 g/dl (14.0-18.0); LYMPHOCYTES # 1.2 10^3/ul (0.8-2.9); LYMPHOCYTES % 18.3 % (15.0-51.0); MEAN CORPUSCULAR HEMOGLOBIN 29.5 pg (29.0-33.0); MEAN CORPUSCULAR HGB CONC 32.9 g/dl (32.0-37.0); MEAN CORPUSCULAR VOLUME 89.8 fl (82.0-101.0); MEAN PLATELET VOLUME 10.4 fl (7.4-10.4); MONOCYTE # 0.7 10^3/ul (0.3-0.9); MONOCYTES % 10.4 % (0.0-11.0); NEUTROPHIL # 4.1 10^3/ul (1.6-7.5); NEUTROPHILS % 64.3 % (39.0-77.0); PLATELET COUNT 172 10^3/UL (140-415); RED CELL DISTRIBUTION WIDTH 14.7 % (11.5-14.5)
[2017-11-28 06:34] LABS: ANION GAP 11 (8-16); BLOOD UREA NITROGEN 30 mg/dl (7-20); CALCIUM 9.4 mg/dl (8.4-10.2); CARBON DIOXIDE 30 mmol/L (21-31); CHLORIDE 110 mmol/L (97-110); CREATININE 1.09 mg/dl (0.61-1.24); GLUCOSE 132 mg/dl (70-220); POTASSIUM 4.7 mmol/L (3.5-5.1); SODIUM 146 mmol/L (135-144)
[2017-11-28] MEDS: INSULIN ASPART [NOVOLOG] 3 ML PEN SC ×4 (07:35→20:39)
[2017-11-28] MEDS: DULOXETINE 30 MG CAP DR PO (08:37)
[2017-11-28] MEDS: NATEGLINIDE 120 MG TAB PO ×3 (08:37→17:45)
[2017-11-28] MEDS: ATORVASTATIN 40 MG TAB PO (08:38)
[2017-11-28] MEDS: CHOLECALCIFEROL 1,000 UNIT TAB PO (08:38)
[2017-11-28] MEDS: GABAPENTIN 300 MG CAP PO ×3 (08:38→20:42)
[2017-11-28] MEDS: POTASSIUM CHLORIDE (SR) 8 MEQ CAP PO (08:38)
[2017-11-28] MEDS: MELOXICAM 15 MG TAB PO (08:38)
[2017-11-28] MEDS: DOCUSATE SODIUM 100 MG CAP PO ×2 (08:38→20:42)
[2017-11-28] MEDS: BACLOFEN 10 MG TAB PO ×4 (08:38→20:41)
[2017-11-28] MEDS: ASPIRIN 81 MG TAB PO (08:38)
[2017-11-28] MEDS: LISINOPRIL 10 MG TAB PO (08:39)
[2017-11-28] MEDS: VANCOMYCIN 1.25 GM in SOD CHLORIDE 0.9% 250 ML IVPB (08:40)
[2017-11-28 19:20] LABS: VANCOMYCIN,TROUGH 19.8 ug/ml (10.0-20.0)
[2017-11-28] MEDS: SENNA TAB PO (20:41)
[2017-11-28] MEDS: HEPARIN 5,000 UNIT/0.5 ML VIAL SC (20:43)
[2017-11-29] MEDS: PIPER-TAZO 3.375 GM IV (PMX) 100 ML IVPB ×4 (00:31→17:38)
[2017-11-29] MEDS: ACCU-CHEK XX (02:00)
[2017-11-29] MEDS: VANCOMYCIN 750 MG in DEXTROSE 5% 150 ML IVPB ×2 (04:18→16:22)
[2017-11-29] MEDS: FUROSEMIDE 40 MG TAB PO (06:27)
[2017-11-29 06:51] LABS: ADD MAN DIFF? NO
[2017-11-29 07:02] LABS: BASOPHILS % 0.6 % (0.0-2.0); EOSINOPHILS # 0.3 10^3/ul (0.0-0.5); EOSINOPHILS % 5.1 % (0.0-7.0); HEMATOCRIT 35.3 % (42.0-52.0); HEMOGLOBIN 11.7 g/dl (14.0-18.0); LYMPHOCYTES # 1.2 10^3/ul (0.8-2.9); LYMPHOCYTES % 18.8 % (15.0-51.0); MEAN CORPUSCULAR HEMOGLOBIN 29.4 pg (29.0-33.0); MEAN CORPUSCULAR HGB CONC 33.1 g/dl (32.0-37.0); MEAN CORPUSCULAR VOLUME 88.7 fl (82.0-101.0); MEAN PLATELET VOLUME 10.5 fl (7.4-10.4); MONOCYTE # 0.6 10^3/ul (0.3-0.9); MONOCYTES % 9.2 % (0.0-11.0); NEUTROPHIL # 4.1 10^3/ul (1.6-7.5); NEUTROPHILS % 66.1 % (39.0-77.0); PLATELET COUNT 169 10^3/UL (140-415); RED BLOOD COUNT 3.98 10^6/ul (4.70-6.10); RED CELL DISTRIBUTION WIDTH 14.6 % (11.5-14.5)
[2017-11-29 07:02] LABS: WHITE BLOOD COUNT 6.2 10^3/ul (4.8-10.8)
[2017-11-29 07:15] LABS: ANION GAP 11 (8-16); BLOOD UREA NITROGEN 32 mg/dl (7-20); CALCIUM 9.2 mg/dl (8.4-10.2); CARBON DIOXIDE 26 mmol/L (21-31); CHLORIDE 113 mmol/L (97-110); CREATININE 0.98 mg/dl (0.61-1.24); GLUCOSE 146 mg/dl (70-220); POTASSIUM 4.2 mmol/L (3.5-5.1); SODIUM 146 mmol/L (135-144)
[2017-11-29] MEDS: INSULIN ASPART [NOVOLOG] 3 ML PEN SC ×4 (08:26→20:50)
[2017-11-29] MEDS: DULOXETINE 30 MG CAP DR PO (08:27)
[2017-11-29] MEDS: GABAPENTIN 300 MG CAP PO ×3 (08:28→20:49)
[2017-11-29] MEDS: MELOXICAM 15 MG TAB PO (08:28)
[2017-11-29] MEDS: DOCUSATE SODIUM 100 MG CAP PO ×2 (08:28→20:50)
[2017-11-29] MEDS: NATEGLINIDE 120 MG TAB PO ×3 (08:29→17:38)
[2017-11-29] MEDS: ATORVASTATIN 40 MG TAB PO (08:30)
[2017-11-29] MEDS: BACLOFEN 10 MG TAB PO ×4 (08:30→20:50)
[2017-11-29] MEDS: LISINOPRIL 10 MG TAB PO (08:31)
[2017-11-29] MEDS: HEPARIN 5,000 UNIT/0.5 ML VIAL SC ×2 (08:39→20:51)
[2017-11-29] MEDS: ASPIRIN 81 MG TAB PO (08:39)
[2017-11-29] MEDS: CHOLECALCIFEROL 1,000 UNIT TAB PO (12:18)
[2017-11-29] MEDS: POTASSIUM CHLORIDE (SR) 8 MEQ CAP PO (14:57)
[2017-11-29] MEDS: SENNA TAB PO (20:50)
[2017-11-30] MEDS: PIPER-TAZO 3.375 GM IV (PMX) 100 ML IVPB ×3 (00:28→12:25)
[2017-11-30] MEDS: ACCU-CHEK XX (01:48)
[2017-11-30] MEDS: VANCOMYCIN 750 MG in DEXTROSE 5% 150 ML IVPB ×2 (03:51→16:22)
[2017-11-30 05:36] LABS: ADD MAN DIFF? NO
[2017-11-30] MEDS: FUROSEMIDE 40 MG TAB PO (05:38)
[2017-11-30 05:42] LABS: BASOPHILS % 0.7 % (0.0-2.0); EOSINOPHILS # 0.4 10^3/ul (0.0-0.5); HEMATOCRIT 35.7 % (42.0-52.0); HEMOGLOBIN 11.7 g/dl (14.0-18.0); LYMPHOCYTES # 1.3 10^3/ul (0.8-2.9); LYMPHOCYTES % 22.4 % (15.0-51.0); MEAN CORPUSCULAR HEMOGLOBIN 29.3 pg (29.0-33.0); MEAN CORPUSCULAR HGB CONC 32.8 g/dl (32.0-37.0); MEAN CORPUSCULAR VOLUME 89.3 fl (82.0-101.0); MEAN PLATELET VOLUME 10.4 fl (7.4-10.4); MONOCYTE # 0.5 10^3/ul (0.3-0.9); MONOCYTES % 9.2 % (0.0-11.0); NEUTROPHIL # 3.5 10^3/ul (1.6-7.5); NEUTROPHILS % 60.5 % (39.0-77.0); PLATELET COUNT 152 10^3/UL (140-415); RED CELL DISTRIBUTION WIDTH 14.2 % (11.5-14.5)
[2017-11-30 05:42] LABS: WHITE BLOOD COUNT 5.9 10^3/ul (4.8-10.8)
[2017-11-30 05:57] LABS: PHOSPHORUS 3.6 mg/dl (2.5-4.9)
[2017-11-30 05:57] LABS: MAGNESIUM 1.9 mg/dl (1.7-2.5)
[2017-11-30 06:03] LABS: ANION GAP 12 (8-16); BLOOD UREA NITROGEN 32 mg/dl (7-20); CARBON DIOXIDE 25 mmol/L (21-31); CHLORIDE 108 mmol/L (97-110); CREATININE 0.98 mg/dl (0.61-1.24); GLUCOSE 150 mg/dl (70-220); POTASSIUM 4.2 mmol/L (3.5-5.1); SODIUM 141 mmol/L (135-144)
[2017-11-30 06:38] LABS: HEMOGLOBIN A1C 6.1 % (0-5.9)
[2017-11-30] MEDS: INSULIN ASPART [NOVOLOG] 3 ML PEN SC ×4 (08:30→20:42)
[2017-11-30] MEDS: NATEGLINIDE 120 MG TAB PO ×3 (08:31→17:25)
[2017-11-30] MEDS: HEPARIN 5,000 UNIT/0.5 ML VIAL SC ×2 (08:31→20:20)
[2017-11-30] MEDS: ATORVASTATIN 40 MG TAB PO (08:32)
[2017-11-30] MEDS: DULOXETINE 30 MG CAP DR PO (08:32)
[2017-11-30] MEDS: ASPIRIN 81 MG TAB PO (08:32)
[2017-11-30] MEDS: DOCUSATE SODIUM 100 MG CAP PO ×2 (08:32→20:12)
[2017-11-30] MEDS: CHOLECALCIFEROL 1,000 UNIT TAB PO (08:32)
[2017-11-30] MEDS: GABAPENTIN 300 MG CAP PO ×3 (08:32→20:12)
[2017-11-30] MEDS: MELOXICAM 15 MG TAB PO (08:32)
[2017-11-30] MEDS: BACLOFEN 10 MG TAB PO ×4 (08:32→20:12)
[2017-11-30] MEDS: LISINOPRIL 10 MG TAB PO (08:33)
[2017-11-30] MEDS: POTASSIUM CHLORIDE (SR) 8 MEQ CAP PO (08:33)
[2017-11-30] MEDS: CIPROFLOXACIN 500 MG TAB NGT (17:25)
[2017-11-30] MEDS: SENNA TAB PO (20:12)
[2017-12-01] MEDS: ACCU-CHEK XX (02:00)
[2017-12-01 03:20] LABS: ADD MAN DIFF? NO
[2017-12-01 03:21] LABS: BASOPHILS % 0.6 % (0.0-2.0); EOSINOPHILS # 0.3 10^3/ul (0.0-0.5); EOSINOPHILS % 6.6 % (0.0-7.0); HEMATOCRIT 35.9 % (42.0-52.0); HEMOGLOBIN 11.8 g/dl (14.0-18.0); LYMPHOCYTES # 1.2 10^3/ul (0.8-2.9); LYMPHOCYTES % 23.9 % (15.0-51.0); MEAN CORPUSCULAR HEMOGLOBIN 29.1 pg (29.0-33.0); MEAN CORPUSCULAR HGB CONC 32.9 g/dl (32.0-37.0); MEAN CORPUSCULAR VOLUME 88.6 fl (82.0-101.0); MEAN PLATELET VOLUME 10.1 fl (7.4-10.4); MONOCYTE # 0.4 10^3/ul (0.3-0.9); MONOCYTES % 7.4 % (0.0-11.0); NEUTROPHIL # 3.2 10^3/ul (1.6-7.5); NEUTROPHILS % 61.3 % (39.0-77.0); PLATELET COUNT 155 10^3/UL (140-415); RED BLOOD COUNT 4.05 10^6/ul (4.70-6.10); RED CELL DISTRIBUTION WIDTH 14.4 % (11.5-14.5)
[2017-12-01 03:21] LABS: WHITE BLOOD COUNT 5.2 10^3/ul (4.8-10.8)
[2017-12-01 03:44] LABS: ANION GAP 13 (8-16); BLOOD UREA NITROGEN 37 mg/dl (7-20); CALCIUM 9.2 mg/dl (8.4-10.2); CARBON DIOXIDE 27 mmol/L (21-31); CHLORIDE 107 mmol/L (97-110); CREATININE 1.08 mg/dl (0.61-1.24); GLUCOSE 126 mg/dl (70-220); POTASSIUM 4.1 mmol/L (3.5-5.1); SODIUM 143 mmol/L (135-144)
[2017-12-01 03:57] LABS: VANCOMYCIN,TROUGH 11.4 ug/ml (10.0-20.0)
[2017-12-01] MEDS: VANCOMYCIN 750 MG in DEXTROSE 5% 150 ML IVPB ×2 (04:28→15:19)
[2017-12-01] MEDS: CIPROFLOXACIN 500 MG TAB NGT (05:33)
[2017-12-01] MEDS: FUROSEMIDE 40 MG TAB PO (05:33)
[2017-12-01] MEDS: NATEGLINIDE 120 MG TAB PO ×3 (08:17→17:29)
[2017-12-01] MEDS: INSULIN ASPART [NOVOLOG] 3 ML PEN SC ×4 (08:29→21:00)
[2017-12-01] MEDS: LISINOPRIL 10 MG TAB PO (09:50)
[2017-12-01] MEDS: ATORVASTATIN 40 MG TAB PO (09:50)
[2017-12-01] MEDS: ASPIRIN 81 MG TAB PO (09:50)
[2017-12-01] MEDS: POTASSIUM CHLORIDE (SR) 8 MEQ CAP PO (09:50)
[2017-12-01] MEDS: GABAPENTIN 300 MG CAP PO ×3 (09:50→20:53)
[2017-12-01] MEDS: CHOLECALCIFEROL 1,000 UNIT TAB PO (09:50)
[2017-12-01] MEDS: DULOXETINE 30 MG CAP DR PO (09:51)
[2017-12-01] MEDS: MELOXICAM 15 MG TAB PO (09:51)
[2017-12-01] MEDS: BACLOFEN 10 MG TAB PO ×4 (09:51→20:53)
[2017-12-01] MEDS: DOCUSATE SODIUM 100 MG CAP PO ×2 (09:51→20:52)
[2017-12-01] MEDS: HEPARIN 5,000 UNIT/0.5 ML VIAL SC ×2 (09:52→21:04)
[2017-12-01] MEDS: CIPROFLOXACIN 500 MG TAB PO (17:29)
[2017-12-01] MEDS: SENNA TAB PO (20:52)
[2017-12-02] MEDS: ACCU-CHEK XX (02:00)
[2017-12-02] MEDS: VANCOMYCIN 750 MG in DEXTROSE 5% 150 ML IVPB (03:52)
[2017-12-02 05:15] LABS: ADD MAN DIFF? NO
[2017-12-02 05:19] LABS: WHITE BLOOD COUNT 6.4 10^3/ul (4.8-10.8)
[2017-12-02 05:19] LABS: BASOPHIL # 0.1 10^3/ul (0.0-0.1); BASOPHILS % 0.8 % (0.0-2.0); EOSINOPHILS # 0.5 10^3/ul (0.0-0.5); EOSINOPHILS % 7.4 % (0.0-7.0); HEMATOCRIT 35.5 % (42.0-52.0); HEMOGLOBIN 11.8 g/dl (14.0-18.0); LYMPHOCYTES # 1.4 10^3/ul (0.8-2.9); LYMPHOCYTES % 21.1 % (15.0-51.0); MEAN CORPUSCULAR HEMOGLOBIN 29.3 pg (29.0-33.0); MEAN CORPUSCULAR HGB CONC 33.2 g/dl (32.0-37.0); MEAN CORPUSCULAR VOLUME 88.1 fl (82.0-101.0); MEAN PLATELET VOLUME 10.5 fl (7.4-10.4); MONOCYTE # 0.5 10^3/ul (0.3-0.9); MONOCYTES % 8.5 % (0.0-11.0); NEUTROPHILS % 62.2 % (39.0-77.0); PLATELET COUNT 163 10^3/UL (140-415); RED BLOOD COUNT 4.03 10^6/ul (4.70-6.10); RED CELL DISTRIBUTION WIDTH 14.5 % (11.5-14.5)
[2017-12-02] MEDS: CIPROFLOXACIN 500 MG TAB PO ×2 (05:43→17:33)
[2017-12-02] MEDS: FUROSEMIDE 40 MG TAB PO (05:44)
[2017-12-02 05:48] LABS: ANION GAP 12 (8-16); BLOOD UREA NITROGEN 29 mg/dl (7-20); CALCIUM 9.2 mg/dl (8.4-10.2); CARBON DIOXIDE 25 mmol/L (21-31); CHLORIDE 110 mmol/L (97-110); CREATININE 0.88 mg/dl (0.61-1.24); GLUCOSE 151 mg/dl (70-220); POTASSIUM 4.3 mmol/L (3.5-5.1); SODIUM 143 mmol/L (135-144)
[2017-12-02] MEDS: NATEGLINIDE 120 MG TAB PO ×3 (06:52→17:33)
[2017-12-02] MEDS: INSULIN ASPART [NOVOLOG] 3 ML PEN SC ×4 (08:33→20:46)
[2017-12-02] MEDS: HEPARIN 5,000 UNIT/0.5 ML VIAL SC ×2 (08:34→20:42)
[2017-12-02] MEDS: MELOXICAM 15 MG TAB PO (08:35)
[2017-12-02] MEDS: POTASSIUM CHLORIDE (SR) 8 MEQ CAP PO (08:35)
[2017-12-02] MEDS: LISINOPRIL 10 MG TAB PO (08:35)
[2017-12-02] MEDS: DULOXETINE 30 MG CAP DR PO (08:35)
[2017-12-02] MEDS: BACLOFEN 10 MG TAB PO ×4 (08:35→20:40)
[2017-12-02] MEDS: ASPIRIN 81 MG TAB PO (08:35)
[2017-12-02] MEDS: ATORVASTATIN 40 MG TAB PO (08:35)
[2017-12-02] MEDS: CHOLECALCIFEROL 1,000 UNIT TAB PO (08:35)
[2017-12-02] MEDS: GABAPENTIN 300 MG CAP PO ×3 (08:35→20:40)
[2017-12-02] MEDS: DOCUSATE SODIUM 100 MG CAP PO ×2 (08:35→20:40)
[2017-12-02] MEDS: VANCOMYCIN 1 GM 250 ML IVPB (15:29)
[2017-12-02] MEDS: SENNA TAB PO (20:40)
[2017-12-03] MEDS: SOD CHLORIDE 0.9% 1,000 ML IV (01:23)
[2017-12-03] MEDS: ACCU-CHEK XX (02:00)
[2017-12-03] MEDS: VANCOMYCIN 1 GM 250 ML IVPB ×2 (04:17→16:38)
[2017-12-03] MEDS: CIPROFLOXACIN 500 MG TAB PO ×2 (06:00→17:30)
[2017-12-03] MEDS: FUROSEMIDE 40 MG TAB PO (06:00)
[2017-12-03 06:34] LABS: ADD MAN DIFF? NO
[2017-12-03 06:41] LABS: WHITE BLOOD COUNT 6.5 10^3/ul (4.8-10.8)
[2017-12-03 06:41] LABS: BASOPHILS % 0.6 % (0.0-2.0); EOSINOPHILS # 0.4 10^3/ul (0.0-0.5); EOSINOPHILS % 6.2 % (0.0-7.0); HEMATOCRIT 34.8 % (42.0-52.0); HEMOGLOBIN 11.8 g/dl (14.0-18.0); LYMPHOCYTES # 0.9 10^3/ul (0.8-2.9); LYMPHOCYTES % 14.4 % (15.0-51.0); MEAN CORPUSCULAR HEMOGLOBIN 29.9 pg (29.0-33.0); MEAN CORPUSCULAR HGB CONC 33.9 g/dl (32.0-37.0); MEAN CORPUSCULAR VOLUME 88.1 fl (82.0-101.0); MEAN PLATELET VOLUME 10.8 fl (7.4-10.4); MONOCYTE # 0.6 10^3/ul (0.3-0.9); MONOCYTES % 8.8 % (0.0-11.0); NEUTROPHIL # 4.5 10^3/ul (1.6-7.5); NEUTROPHILS % 69.8 % (39.0-77.0); PLATELET COUNT 149 10^3/UL (140-415); RED BLOOD COUNT 3.95 10^6/ul (4.70-6.10); RED CELL DISTRIBUTION WIDTH 14.5 % (11.5-14.5)
[2017-12-03] MEDS: NATEGLINIDE 120 MG TAB PO ×3 (06:43→17:30)
[2017-12-03] MEDS ORDERED: FENTAnyl 50 MCG/ML VIAL (07:02)
[2017-12-03] MEDS ORDERED: HEPARIN 1000 UNITS/ML 10 ML INJ (07:02)
[2017-12-03] MEDS ORDERED: MIDAZOLAM 1 MG/ML 2 ML INJ (07:03)
[2017-12-03] MEDS ORDERED: NITROGLYCERIN (IC) 100 MCG/ML INJ (07:03)
[2017-12-03] MEDS ORDERED: VERAPAMIL 5 MG INJ (07:03)
[2017-12-03] MEDS ORDERED: IODIXANOL LOCM 100 ML BTL (07:03)
[2017-12-03] MEDS ORDERED: LIDOCAINE 1% (MDV) 20 ML INJ (07:03)
[2017-12-03 07:24] LABS: ANION GAP 14 (8-16); BLOOD UREA NITROGEN 29 mg/dl (7-20); CARBON DIOXIDE 24 mmol/L (21-31); CHLORIDE 109 mmol/L (97-110); CREATININE 0.84 mg/dl (0.61-1.24); GLUCOSE 166 mg/dl (70-220); POTASSIUM 4.2 mmol/L (3.5-5.1); SODIUM 143 mmol/L (135-144)
[2017-12-03 07:33] LABS: MAGNESIUM 1.9 mg/dl (1.7-2.5)
[2017-12-03 07:33] LABS: PHOSPHORUS 3.7 mg/dl (2.5-4.9)
[2017-12-03] MEDS: INSULIN ASPART [NOVOLOG] 3 ML PEN SC ×4 (08:00→21:00)
[2017-12-03] MEDS: LISINOPRIL 10 MG TAB PO ×2 (09:00→13:58)
[2017-12-03] MEDS: BACLOFEN 10 MG TAB PO ×4 (09:00→21:27)
[2017-12-03] MEDS: CHOLECALCIFEROL 1,000 UNIT TAB PO (09:00)
[2017-12-03] MEDS: GABAPENTIN 300 MG CAP PO ×3 (09:00→21:27)
[2017-12-03] MEDS: DOCUSATE SODIUM 100 MG CAP PO ×2 (09:00→21:27)
[2017-12-03] MEDS: DULOXETINE 30 MG CAP DR PO ×2 (09:00→13:57)
[2017-12-03] MEDS: ATORVASTATIN 40 MG TAB PO ×2 (09:00→13:57)
[2017-12-03] MEDS: MELOXICAM 15 MG TAB PO ×2 (09:00→13:57)
[2017-12-03] MEDS: HEPARIN 5,000 UNIT/0.5 ML VIAL SC ×2 (09:00→21:29)
[2017-12-03] MEDS: POTASSIUM CHLORIDE (SR) 8 MEQ CAP PO ×2 (09:00→13:57)
[2017-12-03] MEDS: ASPIRIN 81 MG TAB PO ×2 (09:00→13:57)
[2017-12-03] MEDS: SENNA TAB PO (21:28)
[2017-12-04] MEDS: SOD CHLORIDE 0.9% 1,000 ML IV ×2 (01:30→04:35)
[2017-12-04] MEDS: ACCU-CHEK XX (01:43)
[2017-12-04 03:52] LABS: VANCOMYCIN,TROUGH 13.3 ug/ml (10.0-20.0)
[2017-12-04] MEDS: VANCOMYCIN 1 GM 250 ML IVPB ×2 (04:34→15:44)
[2017-12-04] MEDS: CIPROFLOXACIN 500 MG TAB PO ×2 (06:36→17:27)
[2017-12-04] MEDS: FUROSEMIDE 40 MG TAB PO (06:39)
[2017-12-04] MEDS: ASPIRIN 81 MG TAB PO (08:30)
[2017-12-04] MEDS: ATORVASTATIN 40 MG TAB PO (08:30)
[2017-12-04] MEDS: DOCUSATE SODIUM 100 MG CAP PO ×2 (08:30→21:42)
[2017-12-04] MEDS: DULOXETINE 30 MG CAP DR PO (08:30)
[2017-12-04] MEDS: BACLOFEN 10 MG TAB PO ×4 (08:30→21:42)
[2017-12-04] MEDS: NATEGLINIDE 120 MG TAB PO ×3 (08:30→17:24)
[2017-12-04] MEDS: GABAPENTIN 300 MG CAP PO ×3 (08:31→21:41)
[2017-12-04] MEDS: POTASSIUM CHLORIDE (SR) 8 MEQ CAP PO (08:31)
[2017-12-04] MEDS: MELOXICAM 15 MG TAB PO (08:32)
[2017-12-04] MEDS: LISINOPRIL 10 MG TAB PO (08:32)
[2017-12-04] MEDS: INSULIN ASPART [NOVOLOG] 3 ML PEN SC ×4 (08:35→21:00)
[2017-12-04] MEDS: HEPARIN 5,000 UNIT/0.5 ML VIAL SC ×2 (08:37→21:46)
[2017-12-04] MEDS: CHOLECALCIFEROL 1,000 UNIT TAB PO (09:36)
[2017-12-04] MEDS: SENNA TAB PO (21:42)
[2017-12-05] MEDS: ACCU-CHEK XX (02:00)
[2017-12-05] MEDS: VANCOMYCIN 1 GM 250 ML IVPB ×2 (04:20→16:26)
[2017-12-05] MEDS: CIPROFLOXACIN 500 MG TAB PO ×2 (06:12→17:37)
[2017-12-05] MEDS: FUROSEMIDE 40 MG TAB PO (06:12)
[2017-12-05] MEDS: NATEGLINIDE 120 MG TAB PO ×3 (08:17→17:37)
[2017-12-05] MEDS: INSULIN ASPART [NOVOLOG] 3 ML PEN SC ×4 (08:20→21:34)
[2017-12-05] MEDS: BACLOFEN 10 MG TAB PO ×4 (09:12→21:36)
[2017-12-05] MEDS: LISINOPRIL 10 MG TAB PO (09:12)
[2017-12-05] MEDS: ASPIRIN 81 MG TAB PO (09:12)
[2017-12-05] MEDS: DULOXETINE 30 MG CAP DR PO (09:12)
[2017-12-05] MEDS: DOCUSATE SODIUM 100 MG CAP PO ×2 (09:12→21:36)
[2017-12-05] MEDS: CHOLECALCIFEROL 1,000 UNIT TAB PO (09:12)
[2017-12-05] MEDS: ATORVASTATIN 40 MG TAB PO (09:12)
[2017-12-05] MEDS: MELOXICAM 15 MG TAB PO (09:12)
[2017-12-05] MEDS: GABAPENTIN 300 MG CAP PO ×3 (09:13→21:36)
[2017-12-05] MEDS: HEPARIN 5,000 UNIT/0.5 ML VIAL SC ×2 (09:14→21:35)
[2017-12-05] MEDS: POTASSIUM CHLORIDE (SR) 8 MEQ CAP PO (09:16)
[2017-12-05] MEDS: SOD CHLORIDE 0.9% 1,000 ML IV (12:26)
[2017-12-05] MEDS: SENNA TAB PO (21:36)
[2017-12-06] MEDS: ACCU-CHEK XX (02:00)
[2017-12-06] MEDS: VANCOMYCIN 1 GM 250 ML IVPB ×2 (04:07→17:26)
[2017-12-06] MEDS: CIPROFLOXACIN 500 MG TAB PO ×2 (05:32→17:26)
[2017-12-06] MEDS: FUROSEMIDE 40 MG TAB PO (05:33)
[2017-12-06] MEDS: MELOXICAM 15 MG TAB PO (08:25)
[2017-12-06] MEDS: DULOXETINE 30 MG CAP DR PO (08:26)
[2017-12-06] MEDS: DOCUSATE SODIUM 100 MG CAP PO ×2 (08:26→21:44)
[2017-12-06] MEDS: NATEGLINIDE 120 MG TAB PO ×3 (08:26→17:26)
[2017-12-06] MEDS: CHOLECALCIFEROL 1,000 UNIT TAB PO (08:26)
[2017-12-06] MEDS: LISINOPRIL 10 MG TAB PO (08:26)
[2017-12-06] MEDS: BACLOFEN 10 MG TAB PO ×4 (08:26→21:42)
[2017-12-06] MEDS: ASPIRIN 81 MG TAB PO (08:26)
[2017-12-06] MEDS: ATORVASTATIN 40 MG TAB PO (08:26)
[2017-12-06] MEDS: POTASSIUM CHLORIDE (SR) 8 MEQ CAP PO (08:26)
[2017-12-06] MEDS: GABAPENTIN 300 MG CAP PO ×3 (08:26→21:41)
[2017-12-06] MEDS: HEPARIN 5,000 UNIT/0.5 ML VIAL SC ×2 (08:27→21:43)
[2017-12-06] MEDS: INSULIN ASPART [NOVOLOG] 3 ML PEN SC ×4 (08:28→21:00)
[2017-12-06] MEDS: SOD CHLORIDE 0.9% 1,000 ML IV (17:31)
[2017-12-06] MEDS: SENNA TAB PO (21:42)
[2017-12-07] MEDS: ACCU-CHEK XX (02:00)
[2017-12-07] MEDS: VANCOMYCIN 1 GM 250 ML IVPB ×2 (04:48→15:07)
[2017-12-07] MEDS: CIPROFLOXACIN 500 MG TAB PO ×2 (06:39→17:27)
[2017-12-07] MEDS: FUROSEMIDE 40 MG TAB PO (06:39)
[2017-12-07 07:39] LABS: BLOOD UREA NITROGEN 23 mg/dl (7-20)
[2017-12-07 07:39] LABS: CREATININE 0.73 mg/dl (0.61-1.24)
[2017-12-07] MEDS: NATEGLINIDE 120 MG TAB PO ×3 (08:39→17:27)
[2017-12-07] MEDS: DULOXETINE 30 MG CAP DR PO (08:39)
[2017-12-07] MEDS: DOCUSATE SODIUM 100 MG CAP PO ×2 (08:39→20:46)
[2017-12-07] MEDS: CHOLECALCIFEROL 1,000 UNIT TAB PO (08:39)
[2017-12-07] MEDS: MELOXICAM 15 MG TAB PO (08:39)
[2017-12-07] MEDS: ATORVASTATIN 40 MG TAB PO (08:39)
[2017-12-07] MEDS: POTASSIUM CHLORIDE (SR) 8 MEQ CAP PO (08:39)
[2017-12-07] MEDS: LISINOPRIL 10 MG TAB PO (08:40)
[2017-12-07] MEDS: ASPIRIN 81 MG TAB PO (08:40)
[2017-12-07] MEDS: BACLOFEN 10 MG TAB PO ×4 (08:40→20:46)
[2017-12-07] MEDS: GABAPENTIN 300 MG CAP PO ×3 (08:40→20:46)
[2017-12-07] MEDS: HEPARIN 5,000 UNIT/0.5 ML VIAL SC ×2 (08:42→20:48)
[2017-12-07] MEDS: INSULIN ASPART [NOVOLOG] 3 ML PEN SC ×4 (08:43→20:47)
[2017-12-07] MEDS: DOXYCYCLINE 100 MG TAB PO (20:46)
[2017-12-07] MEDS: SENNA TAB PO (20:46)
[2017-12-08] MEDS: SOD CHLORIDE 0.9% 1,000 ML IV ×2 (01:30→04:56)
[2017-12-08] MEDS: ACCU-CHEK XX (02:00)
[2017-12-08] MEDS: VANCOMYCIN 1 GM 250 ML IVPB (04:52)
[2017-12-08] MEDS: FUROSEMIDE 40 MG TAB PO (06:10)
[2017-12-08] MEDS: CIPROFLOXACIN 500 MG TAB PO ×2 (06:10→17:34)
[2017-12-08] MEDS: NATEGLINIDE 120 MG TAB PO ×3 (08:19→17:34)
[2017-12-08] MEDS: LISINOPRIL 10 MG TAB PO (08:19)
[2017-12-08] MEDS: GABAPENTIN 300 MG CAP PO ×2 (08:19→12:38)
[2017-12-08] MEDS: DOXYCYCLINE 100 MG TAB PO (08:19)
[2017-12-08] MEDS: BACLOFEN 10 MG TAB PO ×3 (08:19→17:33)
[2017-12-08] MEDS: CHOLECALCIFEROL 1,000 UNIT TAB PO (08:20)
[2017-12-08] MEDS: ATORVASTATIN 40 MG TAB PO (08:20)
[2017-12-08] MEDS: POTASSIUM CHLORIDE (SR) 8 MEQ CAP PO (08:20)
[2017-12-08] MEDS: MELOXICAM 15 MG TAB PO (08:20)
[2017-12-08] MEDS: DULOXETINE 30 MG CAP DR PO (08:20)
[2017-12-08] MEDS: DOCUSATE SODIUM 100 MG CAP PO (08:20)
[2017-12-08] MEDS: ASPIRIN 81 MG TAB PO (08:20)
[2017-12-08] MEDS: INSULIN ASPART [NOVOLOG] 3 ML PEN SC ×3 (08:21→17:34)
[2017-12-08] MEDS: HEPARIN 5,000 UNIT/0.5 ML VIAL SC (08:21)
== END 2017-12-08 18:57 | DRG 638 ==
LOC: PP2 02:01
PROVIDERS: Internal Medicine
PROC: 4A023N7 Measurement of Cardiac Sampling and Pressure, Left Heart, Percutaneous Approach (ICD-10-PCS; principal; 2017-12-03 07:10)
PROC: B211YZZ Fluoroscopy of Multiple Coronary Arteries using Other Contrast (ICD-10-PCS; 2017-12-03 07:10)
DX: E11.621 Type 2 diabetes mellitus with foot ulcer (principal); I50.30 Unspecified diastolic (congestive) heart failure; I42.9 Cardiomyopathy, unspecified; L03.115 Cellulitis of right lower limb; L97.512 Non-pressure chronic ulcer of other part of right foot with fat layer exposed; E11.42 Type 2 diabetes mellitus with diabetic polyneuropathy; I25.10 Atherosclerotic heart disease of native coronary artery without angina pectoris; F17.200 Nicotine dependence, unspecified, uncomplicated; I11.0 Hypertensive heart disease with heart failure; Z89.422 Acquired absence of other left toe(s); I70.202 Unspecified atherosclerosis of native arteries of extremities, left leg; I70.235 Atherosclerosis of native arteries of right leg with ulceration of other part of foot; D64.9 Anemia, unspecified; E11.51 Type 2 diabetes mellitus with diabetic peripheral angiopathy without gangrene; S42.301D Unspecified fracture of shaft of humerus, right arm, subsequent encounter for fracture with routine healing; X58.XXXD Exposure to other specified factors, subsequent encounter; Z22.322 Carrier or suspected carrier of Methicillin resistant Staphylococcus aureus; E11.40 Type 2 diabetes mellitus with diabetic neuropathy, unspecified
CPT/HCPCS: 73030-RT; 73718; 80048; 80053; 80202; 82565; 82962; 83036; 83735; 84100; 84520; 85025; 85610; 85651; 85730; 87070; 87081; 93458; 93923; 97161

== ENCOUNTER 2018-08-11 12:32 | Emergency (ER) | payer MEDICARE, OTHER ==
[2018-08-11] MEDS: KETOROLAC 30 MG INJ IM (13:47)
== END 2018-08-11 18:08 | disposition home or self-care (01) ==
LOC: E/R 12:32
DX: S09.90XA Unspecified injury of head, initial encounter (principal); S83.92XA Sprain of unspecified site of left knee, initial encounter; I25.10 Atherosclerotic heart disease of native coronary artery without angina pectoris; I11.0 Hypertensive heart disease with heart failure; I50.9 Heart failure, unspecified; E11.9 Type 2 diabetes mellitus without complications; R41.82 Altered mental status, unspecified; W10.8XXA Fall (on) (from) other stairs and steps, initial encounter; Y92.9 Unspecified place or not applicable; Z79.82 Long term (current) use of aspirin; Z79.84 Long term (current) use of oral hypoglycemic drugs
CPT/HCPCS: 70450; 71045; 73562; 96372; 99285-25

== ENCOUNTER 2018-08-13 09:03 | Emergency (ER) | payer MEDICARE ==
[2018-08-13] MEDS: ONDANSETRON 4 MG INJ IV ×2 (10:03→13:05)
[2018-08-13] MEDS: morphine 4 MG/ML VIAL IV (10:03)
[2018-08-13] MEDS: SOD CHLORIDE 0.9% 1,000 ML IV ×2 (10:03→13:03)
[2018-08-13 10:05] LABS: ADD MAN DIFF? NO
[2018-08-13 10:07] LABS: BASOPHIL # 0.1 10^3/ul (0.0-0.1); BASOPHILS % 0.5 % (0.0-2.0); EOSINOPHILS # 0.1 10^3/ul (0.0-0.5); EOSINOPHILS % 0.8 % (0.0-7.0); HEMATOCRIT 35.9 % (42.0-52.0); HEMOGLOBIN 11.9 g/dl (14.0-18.0); LYMPHOCYTES # 0.8 10^3/ul (0.8-2.9); MEAN CORPUSCULAR HEMOGLOBIN 29.4 pg (29.0-33.0); MEAN CORPUSCULAR HGB CONC 33.1 g/dl (32.0-37.0); MEAN CORPUSCULAR VOLUME 88.6 fl (82.0-101.0); MEAN PLATELET VOLUME 10.7 fl (7.4-10.4); MONOCYTES % 7.7 % (0.0-11.0); NEUTROPHIL # 10.9 10^3/ul (1.6-7.5); NEUTROPHILS % 84.5 % (39.0-77.0); PLATELET COUNT 146 10^3/UL (140-415); RED BLOOD COUNT 4.05 10^6/ul (4.70-6.10)
[2018-08-13 10:26] LABS: ALANINE AMINOTRANSFERASE 41 IU/L (13-69); ALBUMIN 3.3 g/dl (3.3-4.9); ALBUMIN/GLOBULIN RATIO 0.71; ALKALINE PHOSPHATASE 264 IU/L (42-121); ANION GAP 9 (5-13); ASPARTATE AMINO TRANSFERASE 152 IU/L (15-46); BILIRUBIN,INDIRECT 0.9 mg/dl (0-1.1); BILIRUBIN,TOTAL 0.9 mg/dl (0.2-1.3); BLOOD UREA NITROGEN 18 mg/dl (7-20); CALCIUM 9.5 mg/dl (8.4-10.2); CARBON DIOXIDE 28 mmol/L (21-31); CHLORIDE 101 mmol/L (97-110); CREATINE KINASE 68 IU/L (23-200); CREATININE 1.03 mg/dl (0.61-1.24); Estimated GFR > 60 mL/min (>60); GLUCOSE 172 mg/dl (70-220); INR 1.23; PROTIME 15.6 Sec (11.9-14.9); PT RATIO 1.2; SODIUM 138 mmol/L (135-144); TOTAL PROTEIN 7.9 g/dl (6.1-8.1)
[2018-08-13 10:27] LABS: PARTIAL THROMBOPLASTIN TIME 35.4 Sec (23.0-35.0)
[2018-08-13 10:36] LABS: CK INDEX 1.7; CK-MB 1.17 ng/ml (0.0-2.4)
[2018-08-13 10:40] LABS: TROPONIN-I 0.074 ng/ml (0.000-0.120)
[2018-08-13] MEDS: morphine 2 MG INJ IV (13:08)
== END 2018-08-13 15:13 | disposition home or self-care (01) ==
LOC: E/R 09:03
DX: S00.83XA Contusion of other part of head, initial encounter (principal); S82.044A Nondisplaced comminuted fracture of right patella, initial encounter for closed fracture; R07.9 Chest pain, unspecified; W10.8XXA Fall (on) (from) other stairs and steps, initial encounter; Y92.531 Health care provider office as the place of occurrence of the external cause; Z79.82 Long term (current) use of aspirin; Z79.84 Long term (current) use of oral hypoglycemic drugs
CPT/HCPCS: 29505; 70450; 71045; 72125; 72170; 73502; 73510; 73562; 80053; 82550; 82553; 84484; 85025; 85610; 85730; 96374; 96375; 96376; 99285-25